=== PATIENT | female | born 1965 | race Caucasian/White ===

== ENCOUNTER 2016-11-23 14:34 | Emergency (ER) | payer MEDICAID ==
[2016-11-23 17:31] VITALS: BP 117/89
== END 2016-11-23 17:31 | disposition home or self-care (01) ==
LOC: ED 14:34
DX: G43.909 Migraine, unspecified, not intractable, without status migrainosus (principal)
CPT/HCPCS: J1200; J1885; J2765; J7030

== ENCOUNTER 2017-01-18 00:15 | Emergency (ER) | payer MEDICAID ==
[2017-01-18 01:28] VITALS: BP 163/85
== END 2017-01-18 01:29 | disposition home or self-care (01) ==
LOC: ED 00:15
DX: S46.912A Strain of unspecified muscle, fascia and tendon at shoulder and upper arm level, left arm, initial encounter (principal); S16.1XXA Strain of muscle, fascia and tendon at neck level, initial encounter; S39.012A Strain of muscle, fascia and tendon of lower back, initial encounter; X58.XXXA Exposure to other specified factors, initial encounter; Y93.89 Activity, other specified; Y92.89 Other specified places as the place of occurrence of the external cause; Y99.8 Other external cause status

== ENCOUNTER 2017-10-30 14:33 | Emergency (ER) | payer MEDICAID ==
[~2017-10-30] VITALS: Ht 162.6 cm; Wt 70.8 kg
[2017-10-30 14:39] VITALS: BP 110/81; Ht 162.6 cm; Wt 70.8 kg
== END 2017-10-30 15:34 | disposition home or self-care (01) ==
LOC: ED 14:33
DX: B34.9 Viral infection, unspecified (principal); G43.909 Migraine, unspecified, not intractable, without status migrainosus

== ENCOUNTER 2017-11-04 08:35 | Emergency (ER) | payer MEDICAID ==
[~2017-11-04] VITALS: Ht 162.6 cm; Wt 69.8 kg
[2017-11-04 08:38] VITALS: Ht 162.6 cm; Wt 69.8 kg
[2017-11-04 11:27] VITALS: BP 115/75
== END 2017-11-04 11:27 | disposition home or self-care (01) ==
LOC: ED 08:35
DX: N39.0 Urinary tract infection, site not specified (principal); G43.909 Migraine, unspecified, not intractable, without status migrainosus
CPT/HCPCS: 82962; J2550

== ENCOUNTER 2018-04-30 19:12 | Emergency (ER) | payer MEDICAID ==
[~2018-04-30] VITALS: Ht 162.6 cm; Wt 74.4 kg
[2018-04-30 19:34] VITALS: Ht 162.6 cm; Wt 74.4 kg
[2018-04-30 22:26] VITALS: BP 133/70
== END 2018-04-30 22:26 | disposition home or self-care (01) ==
LOC: ED 19:12
DX: G89.29 Other chronic pain (principal); M25.511 Pain in right shoulder; G43.909 Migraine, unspecified, not intractable, without status migrainosus
CPT/HCPCS: J1885